=== PATIENT | female | born 1995 | race American Indian/Alaskan Native ===

== ENCOUNTER 2022-05-08 10:54 | Outpatient (CLI) | payer MEDICAID ==
[2022-05-08 13:31] VITALS: BP 114/59
== END 2022-05-08 13:54 | disposition home or self-care (01) ==
LOC: APU 10:54 → TRG 10:54
PROVIDERS: ATTEND Obstetrics & Gynecology
DX: O42.912 Preterm premature rupture of membranes, unspecified as to length of time between rupture and onset of labor, second trimester (principal); Z3A.22 22 weeks gestation of pregnancy
CPT/HCPCS: 36415; 84112